=== PATIENT | female | born 1975 | race Caucasian/White ===

== ENCOUNTER 2017-10-02 15:10 | Emergency (ER) | payer MEDICAID ==
[~2017-10-02] VITALS: Ht 157.5 cm; Wt 122.7 kg
[2017-10-02] MEDS ORDERED: IPRATROPIUM BROMIDE 0.5 MG/2.5 ML NEB SOLUTION NEB ONE (16:00)
[2017-10-02] MEDS ORDERED: ALBUTEROL SULFATE 5 MG/ML 20 ML NEB SOLN [BULK] NEB ONE (16:00)
[2017-10-02] MEDS ORDERED: 0.9% SODIUM CHLORIDE 5 ML NEB SOLUTION NEB ONE (16:20)
[2017-10-02] MEDS ORDERED: ALBUTEROL SULFATE HFA 90 MCG/PUFF 8 GM INHALER IH ONE (17:00)
[2017-10-02] MEDS ORDERED: DEXAMETHASONE SOD PHOS 4 MG/ML 5 ML VIAL IM ONE (17:00)
[2017-10-02 18:27] VITALS: BP 138/87
== END 2017-10-02 18:31 | disposition home or self-care (01) ==
LOC: EMS 15:12
DX: J40 Bronchitis, not specified as acute or chronic (principal); E66.9 Obesity, unspecified; Z68.42 Body mass index [BMI] 45.0-49.9, adult
CPT/HCPCS: 71045; 93005; 94644; 96372; 99285; J1100; J7611; J3535

== ENCOUNTER 2023-12-12 05:16 | Emergency (ER) | payer MEDICAID ==
[~2023-12-12] VITALS: Ht 167.6 cm; Wt 135.0 kg
[2023-12-12 05:41] LABS: COVID AG,FIA SOURCE NASAL SWAB
[2023-12-12 06:10] LABS: INFLUENZA TYPE A NEGATIVE FOR TYPE A (NEGATIVE); INFLUENZA TYPE B NEGATIVE FOR TYPE B (NEGATIVE); SARS-COV2 (COVID) ANTIGEN,FIA Negative (Negative)
[2023-12-12 06:16] VITALS: BP 125/83; PULSE 100; RESP 18; TEMP 97.3
[2023-12-12] MEDS ORDERED: BENZ-227 PO (06:16)
[2023-12-12] MEDS ORDERED: DOXY-354 PO (06:17)
== END 2023-12-12 06:49 | disposition home or self-care (01) ==
LOC: EMS 05:18
DX: J18.9 Pneumonia, unspecified organism (principal); R05.9 Cough, unspecified; R50.9 Fever, unspecified; Z20.822 Contact with and (suspected) exposure to COVID-19
CPT/HCPCS: 71045; 87804; 99284